=== PATIENT | female | born 1950 | race Caucasian/White ===

== ENCOUNTER 2017-07-03 13:04 | Observation (INO) | payer BC, MEDICARE ==
[~2017-07-03] VITALS: Ht 160 cm; Wt 76.4 kg
[2017-07-03] VITALS (10 sets, daily range): BP systolic 116–161; BP diastolic 60–86; PULSE 53–82; RESP 14–22; TEMP 97.8–97.9; O2SAT 94–98
[2017-07-03] MEDS ORDERED: ASPI-516 CHEW (13:54)
[2017-07-03] MEDS ORDERED: METO1TAB42 PO (13:54)
[2017-07-03] MEDS ORDERED: ASCO100029 PO (13:54)
[2017-07-03] MEDS ORDERED: CLAR10CA3 PO (13:54)
[2017-07-03] MEDS ORDERED: CHOL5000 PO (13:54)
--- NOTE | 2017-07-03 14:59 | PD ---
HPI Chief Complaint: Neuro Symptoms/ Deficits Time Seen by Provider: 14:36 Travel History International Travel<30 days: No Contact w/Intl Traveler<30days: No Traveled to known affect area: No History of Present Illness HPI Patient is a 67-year-old female presents emergency department for evaluation of transient right upper extremity weakness associated with some aphasia. Patient states she was in the shower about 11:30 today and had sudden weakness of her right upper extremity was unable to lift her shampoo bottle, states the symptoms resolved after about an hour. Denies any chest pain short of breath abdominal pain lower extremity weakness left upper trauma weakness or some other symptoms in the past. States she had a checkup a year ago and was deemed healthy, no history of high blood pressure high cholesterol. She states that her father had several strokes in several heart attacks. States symptoms were moderate to severe, right upper traumatic, no radiation, associated signs symptoms and context as above, resolved. PFSH Past Medical History High Cholesterol: Yes Diminished Hearing: No Hypertension: Yes : 1 Para: 1 Past Surgical History Tonsillectomy: Yes Other Surgery: Yes (BREAST BIOPSIES, RIGHT X 1, LEFT X 2 (NEGATIVE RESULTS)) Social History Alcohol Use: Yes (occassional) Tobacco Use: No Substance Use: No Allergies-Medications (Allergen,Severity, Reaction): Coded Allergies: erythromycin base (Verified Allergy, Severe, 07/03/17) abdominal pain Reported Meds & Prescriptions Reported Meds & Active Scripts Active Reported Claritin (Loratadine) 10 Mg Cap 10 Mg PO DAILY Vitamin D3 (Cholecalciferol) 5,000 Unit Cap 5,000 Units PO DAILY Vitamin C (Ascorbic Acid) 1,000 Mg Tablet.er 1,000 Mg PO DAILY Aspirin 81 Mg Chew 81 Mg CHEW DAILY Metoprolol Succinate ER 24 HR (Metoprolol Succinate) 25 Mg Tab 25 Mg PO DAILY Review of Systems Except as stated in HPI: all other systems reviewed are Neg Physical Exam Narrative GENERAL: Well-developed well-nourished no obvious distress SKIN: Focused skin assessment warm/dry. HEAD: Atraumatic. Normocephalic. EYES: Pupils equal and round. No scleral icterus. No injection or drainage. ENT: No nasal bleeding or discharge. Mucous membranes pink and moist. NECK: Trachea midline. No JVD. CARDIOVASCULAR: Regular rate and rhythm. No murmur appreciated. RESPIRATORY: No accessory muscle use. Clear to auscultation. Breath sounds equal bilaterally. GASTROINTESTINAL: Abdomen soft, non-tender, nondistended. Hepatic and splenic margins not palpable. MUSCULOSKELETAL: No obvious deformities. No clubbing. No cyanosis. No edema. NEUROLOGICAL: Awake and alert. Cranial nerves II through XII are grossly intact and nonfocal, 5 out of 5 strength in all 4 extremity's, cerebellar testing with [id number] and heel gonzalez testing negative. PSYCHIATRIC: Appropriate mood and affect; insight and judgment normal. Data Data Last Documented VS Vital Signs Date Time Temp Pulse Resp B/P (MAP) Pulse Ox O2 Delivery O2 Flow Rate FiO2 07/03/17 17:00 66 16 136/65 (88) 98 Room Air 07/03/17 13:07 97.8 Orders Orders Electrocardiogram (07/03/17 14:58) Complete Blood Count With Diff (07/03/17 14:58) Comprehensive Metabolic Panel (07/03/17 14:58) Creatine Kinase (Cpk) (07/03/17 14:58) Prothrombin Time / Inr (Pt) (07/03/17 14:58) Act Partial Throm Time (Ptt) (07/03/17 14:58) Troponin I (07/03/17 14:58) Thyroid Stimulating Hormone (07/03/17 14:58) Urinalysis - C+S If Indicated (07/03/17 14:58) Chest, Single Ap (07/03/17 14:58) Ct Brain W/O Iv Contrast(Rout) (07/03/17 14:58) Blood Glucose (07/03/17 14:58) Ecg Monitoring (07/03/17 14:58) Iv Access Insert/Monitor (07/03/17 14:58) Oximetry (07/03/17 14:58) Sodium Chloride 0.9% Flush (Ns Flush) (07/03/17 15:00) Aspirin Chew (Aspirin Chew) (07/03/17 15:00) Cholecalciferol (Vitamin D3) (07/04/17 09:00) Loratadine (Claritin) (07/04/17 09:00) Metoprolol Succinate Er (Toprol Xl) (07/04/17 09:00) Ascorbic Acid (Vitamin C) (07/04/17 09:00) Admit Order (Ed Use Only) (07/03/17 ) Comprehensive Metabolic Panel (07/04/17 06:00) Free Thyroxine (T4) (07/04/17 06:00) Hemoglobin (Hgb) A1c (07/04/17 06:00) Magnesium (Mg) (07/04/17 06:00) Phosphorus (Po4) (07/04/17 06:00) Thyroid Stimulating Hormone (07/04/17 06:00) Complete Blood Count With Diff (07/04/17 06:00) Clonidine (Catapres) (07/03/17 18:00) Labs Laboratory Tests Test 07/03/17 14:00 White Blood Count 5.3 TH/MM3 Red Blood Count 5.04 MIL/MM3 Hemoglobin 14.8 GM/DL Hematocrit 43.2 % Mean Corpuscular Volume 85.8 FL Mean Corpuscular Hemoglobin 29.4 PG Mean Corpuscular Hemoglobin Concent 34.2 % Red Cell Distribution Width 14.4 % Platelet Count 269 TH/MM3 Mean Platelet Volume 9.0 FL Neutrophils (%) (Auto) 49.3 % Lymphocytes (%) (Auto) 32.6 % Monocytes (%) (Auto) 13.1 % Eosinophils (%) (Auto) 4.1 % Basophils (%) (Auto) 0.9 % Neutrophils # (Auto) 2.6 TH/MM3 Lymphocytes # (Auto) 1.7 TH/MM3 Monocytes # (Auto) 0.7 TH/MM3 Eosinophils # (Auto) 0.2 TH/MM3 Basophils # (Auto) 0.0 TH/MM3 CBC Comment DIFF FINAL Differential Comment Prothrombin Time 10.1 SEC Prothromb Time International Ratio 1.0 RATIO Activated Partial Thromboplast Time 24.0 SEC Urine Color YELLOW Urine Turbidity CLEAR Urine pH 5.5 Urine Specific [place] 1.024 Urine Protein TRACE mg/dL Urine Glucose (UA) NEG mg/dL Urine Ketones NEG mg/dL Urine Occult Blood NEG Urine Nitrite NEG Urine Bilirubin NEG Urine Urobilinogen LESS THAN 2.0 MG/DL Urine Leukocyte Esterase NEG Urine RBC LESS THAN 1 /hpf Urine WBC LESS THAN 1 /hpf Urine Squamous Epithelial Cells 1 /hpf Urine Mucus FEW /lpf Microscopic Urinalysis Comment CATH-CULT NOT IND Blood Urea Nitrogen 13 MG/DL Creatinine 0.83 MG/DL Random Glucose 104 MG/DL Total Protein 7.0 GM/DL Albumin 3.7 GM/DL Calcium Level 8.9 MG/DL Alkaline Phosphatase 104 U/L Aspartate Amino Transf (AST/SGOT) 19 U/L Alanine Aminotransferase (ALT/SGPT) 31 U/L Total Bilirubin 0.3 MG/DL Sodium Level 138 MEQ/L Potassium Level 4.2 MEQ/L Chloride Level 103 MEQ/L Carbon Dioxide Level 27.7 MEQ/L Anion Gap 7 MEQ/L Estimat Glomerular Filtration Rate 68 ML/MIN Total Creatine Kinase 61 U/L Troponin I LESS THAN 0.02 NG/ML Thyroid Stimulating Hormone 3rd Gen 2.100 uIU/ML MDM Medical Decision Making Medical Screen Exam Complete: Yes Emergency Medical Condition: Yes Differential Diagnosis TIA, CVA, carotid stenosis, atrial fibrillation. Narrative Course Patient 67-year-old female presents emergency department for evaluation of TIA symptoms. Patient had a very dense right upper extremity weakness without any facial asymmetry started approximately 11:30 AM today. Upon arrival to the emergency department is completely resolved. Denies any other symptoms. She is a coming by her who states that it appears as though she did have some dysarthria as well. CT head negative, basic laboratory workup negative. Sinus rhythm on the monitor. Has a strong family history of cerebral infarcts in her father. Discussed with Dr. Waggoner for TIA observation Diagnosis Primary Impression: TIA (transient ischemic attack) Admitting Information Admitting Physician Requests: Observation Condition: Stable Noah Sanders MD Jul 03, 2017 14:59
[2017-07-03] MEDS ORDERED: SODIUM CHLORIDE 0.9% FLUSH 10 ML FLUSH IV FLUSH PRN ×3 (15:00→18:00)
[2017-07-03] MEDS ORDERED: ASPIRIN 81 MG CHEW TAB CHEW ONE (15:00)
--- NOTE | 2017-07-03 15:38 | RADRPT ---
EXAM DATE/TIME: 07/03/2017 15:31 [facility] COMPARISON: No previous studies available for comparison. INDICATIONS : Right arm numbness. RADIATION DOSE: 56.35 CTDIvol (mGy) MEDICAL HISTORY : Hypertension. SURGICAL HISTORY : Tonsillectomy. ENCOUNTER: Initial ACUITY: 1 day PAIN SCALE: 0/10 LOCATION: cranial TECHNIQUE: Multiple contiguous axial images were obtained of the head. Using automated exposure control and adj ustment of the mA and/or kV according to patient size, radiation dose was kept as low as reasonably a chievable to obtain optimal diagnostic quality images. DICOM format image data is available electro nically for review and comparison. FINDINGS: CEREBRUM: The ventricles are normal for age. No evidence of midline shift, mass lesion, hemorrhage or acute in farction. No extra-axial fluid collections are seen. POSTERIOR FOSSA: The cerebellum and brainstem are intact. The 4th ventricle is midline. The cerebellopontine angle i s unremarkable. EXTRACRANIAL: The visualized portion of the orbits is intact. SKULL: The calvaria is intact. No evidence of skull fracture. CONCLUSION: Negative noncontrast CT Ariel Conklin MD on July 03, 2017 at 15:35 Board Certified Radiologist. This report was verified electronically.
[2017-07-03 15:46] LABS: AUTOMATED NEUTROPHIL # 2.6 TH/MM3 (1.8-7.7); BASOPHIL % 0.9 % (0.0-2.0); EOSINOPHIL # 0.2 TH/MM3 (0-0.4); EOSINOPHIL % 4.1 % (0.0-4.0); HEMATOCRIT 43.2 % (35.0-46.0); HEMOGLOBIN 14.8 GM/DL (11.6-15.3); LYMPH % 32.6 % (9.0-44.0); LYMPHOCYTE # 1.7 TH/MM3 (1.0-4.8); MEAN CELL VOLUME 85.8 FL (80.0-100.0); MEAN CORPUSCULAR HEMOGLOBIN 29.4 PG (27.0-34.0); MEAN CORPUSCULAR HGB CONC 34.2 % (32.0-36.0); MONO % 13.1 % (0.0-8.0); MONOCYTE # 0.7 TH/MM3 (0-0.9); NEUT % 49.3 % (16.0-70.0); PLATELET COUNT 269 TH/MM3 (150-450); RED BLOOD COUNT 5.04 MIL/MM3 (4.00-5.30); RED CELL DISTRIBUTION WIDTH 14.4 % (11.6-17.2); WHITE BLOOD COUNT 5.3 TH/MM3 (4.0-11.0)
--- NOTE | 2017-07-03 15:47 | RADRPT ---
EXAM DATE/TIME: 07/03/2017 15:14 [facility] COMPARISON: No previous studies available for comparison. INDICATIONS : Syncope. Right arm numbness. MEDICAL HISTORY : None. SURGICAL HISTORY : None. ENCOUNTER: Initial ACUITY: 1 day PAIN SCORE: 0/10 LOCATION: Bilateral chest FINDINGS: A single view of the chest demonstrates the lungs to be symmetrically aerated without evidence of mas s, infiltrate or effusion. The cardiomediastinal contours are unremarkable. Osseous structures are intact. CONCLUSION: 1. No acute cardiopulmonary disease. Sebastian Richard MD on July 03, 2017 at 15:45 Board Certified Radiologist. This report was verified electronically.
[2017-07-03 16:05] LABS: PROTHROMBIN TIME - PATIENT 10.1 SEC (9.8-11.6)
[2017-07-03 16:13] LABS: BILIRUBIN, URINE NEG (NEG); BLOOD, URINE NEG (NEG); GLUCOSE,URINE NEG (NEG); KETONE, URINE NEG (NEG); MUCUS URINE FEW /lpf (OCC); NITRITE,URINE NEG (NEG); PH, URINE 5.5 (5.0-8.5); SQUAMOUS EPITHELIAL CELL URINE 1 /hpf (0-5); URINE COLOR YELLOW (YELLW/STRAW); URINE LEUKOCYTE ESTERASE NEG (NEG)
[2017-07-03 16:28] LABS: ALBUMIN 3.7 GM/DL (3.4-5.0); ALKALINE PHOSPHATASE 104 U/L (45-117); ALT (GPT) 31 U/L (10-53); AST (GOT) 19 U/L (15-37); BICARBONATE 27.7 MEQ/L (21.0-32.0); BLOOD UREA NITROGEN 13 MG/DL (7-18); CALCIUM 8.9 MG/DL (8.5-10.1); CHLORIDE 103 MEQ/L (98-107); CREATININE 0.83 MG/DL (0.50-1.00); GLOMERULAR FILTRATION RATE 68 ML/MIN (>89); GLUCOSE,RANDOM 104 MG/DL (74-106); SODIUM (NA) 138 MEQ/L (136-145); TOTAL BILIRUBIN ADULT 0.3 MG/DL (0.2-1.0); TROPONIN I LESS THAN 0.02 NG/ML (0.02-0.05)
[2017-07-03] MEDS ORDERED: MORPHINE SULFATE 2 MG/ML INJ IV PUSH PRN (18:00)
[2017-07-03] MEDS ORDERED: cloNIDine HCL 0.1 MG TAB PO PRN (18:00)
[2017-07-03] MEDS ORDERED: MAGNESIUM HYDROXIDE SUSP 30 ML CUP PO PRN (18:00)
[2017-07-03] MEDS ORDERED: LACTULOSE SYRUP 20 GM/30 ML CUP PO PRN (18:00)
[2017-07-03] MEDS ORDERED: oxyCODONE/ACETAMINOPHEN 10 MG/325 MG TAB PO PRN (18:00)
[2017-07-03] MEDS ORDERED: ACETAMINOPHEN 325 MG TAB PO PRN ×2 (18:00)
[2017-07-03] MEDS ORDERED: SENNOSIDES 8.6 MG TAB PO PRN (18:00)
[2017-07-03] MEDS ORDERED: ACETAMINOPHEN/HYDROcodone 325 MG/5 MG TAB PO PRN (18:00)
[2017-07-03] MEDS ORDERED: ENOXAPARIN SODIUM 40 MG/0.4 ML SYRINGE SQ SCH (18:00)
[2017-07-03] MEDS ORDERED: BISACODYL 10 MG SUPP RECTAL PRN (18:00)
[2017-07-03] MEDS ORDERED: DEXTROSE 50% IN WATER 50 ML VIAL(D50) IV PUSH PRN (18:00)
[2017-07-03] MEDS ORDERED: GLUCAGON 1 MG/ML VIAL OTHER PRN (18:00)
[2017-07-03] MEDS ORDERED: METOCLOPRAMIDE HCL 10 MG/2 ML VIAL IV PUSH PRN (18:00)
[2017-07-03] MEDS ORDERED: ONDANSETRON HCL 4 MG/2 ML VIAL IVP PRN (18:00)
[2017-07-03] MEDS ORDERED: NALOXONE HCL 0.4 MG/ML AMP IV PUSH PRN (18:00)
[2017-07-03] MEDS ORDERED: MORPHINE SULFATE 4 MG/ML INJ IV PUSH PRN (18:15)
[2017-07-03 19:39] LABS: TROPONIN I LESS THAN 0.02 NG/ML (0.02-0.05)
--- NOTE | 2017-07-03 20:55 | HHI.HP ---
HPI Service [facility] Primary Care Physician No Primary Care Physician Admission Diagnosis TIA Diagnoses: Chief Complaint: right upper extremity weakness Travel History International Travel<30 Days: No Contact w/Intl Traveler <30 Da: No Traveled to Known Affected Are: No History of Present Illness 67 y/o female with a history of HTN, and HLD presented to the ED with complaints of weakness to the right upper extremity, She states she was taking a shower this morning and her right hand when limp and numb. She states she also had a hard time talking, but wasn't sure if it was from the shock of thinking she was having a stroke. She states over the course of a few mins she regained her strength and she was able to finish taking a shower. She states it happened again at around 3:30 but the symptoms were less severe. She denies any associated chest pain, sob, headaches, dizziness, or nausea. 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 She denies any trauma or heavy lifting to the right arm. Her is at the bedside and is a Doctor and he is wanting to her to have a cervical spine x ray. Review of Systems Except as stated in HPI: all other systems reviewed are Neg Past Family Social History Past Medical History HLD HTN Past Surgical History Tonsillectomy Breast biopsies Right wrist surgery Reported Medications Reported Meds & Active Scripts Active Reported Claritin (Loratadine) 10 Mg Cap 10 Mg PO DAILY Vitamin D3 (Cholecalciferol) 5,000 Unit Cap 5,000 Units PO DAILY Vitamin C (Ascorbic Acid) 1,000 Mg Tablet.er 1,000 Mg PO DAILY Aspirin 81 Mg Chew 81 Mg CHEW DAILY Metoprolol Succinate ER 24 HR (Metoprolol Succinate) 25 Mg Tab 25 Mg PO DAILY Allergies: Coded Allergies: erythromycin base (Verified Allergy, Severe, 07/03/17) abdominal pain Active Ordered Medications Current Medications Medications (Trade) Dose Ordered Sig/Chau Route Start Time Stop Time Status Last Admin (NS Flush) 2 ml UNSCH PRN IV FLUSH 07/03/17 15:00 (Vitamin D3) 5,000 units DAILY PO 07/04/17 09:00 (Claritin) 10 mg DAILY PO 07/04/17 09:00 (Toprol Xl) 25 mg DAILY PO 07/04/17 09:00 (Vitamin C) 1,000 mg DAILY PO 07/04/17 09:00 (Catapres) 0.1 mg Q4H PRN PO 07/03/17 18:00 (NS Flush) 2 ml UNSCH PRN IV FLUSH 07/03/17 18:00 (NS Flush) 2 ml BID IV FLUSH 07/03/17 21:00 (Tylenol) 650 mg Q4H PRN PO 07/03/17 18:00 (Zofran Inj) 4 mg Q6H PRN IVP 07/03/17 18:00 (Reglan Inj) 5 mg Q6H PRN IV PUSH 07/03/17 18:00 (Lovenox Inj) 40 mg Q24H SQ 07/03/17 18:00 07/03/17 19:08 (Tylenol) 650 mg Q6H PRN PO 07/03/17 18:00 ([place] 5-325 Mg) 1 tab Q4H PRN PO 07/03/17 18:00 (Percocet 10-325 Mg) 1 tab Q6H PRN PO 07/03/17 18:00 (Morphine Inj) 2 mg Q3H PRN IV PUSH 07/03/17 18:00 (Morphine Inj) 4 mg Q3H PRN IV PUSH 07/03/17 18:15 (Narcan Inj) 0.4 mg UNSCH PRN IV PUSH 07/03/17 18:00 (Melba-Colace) 1 tab BID PO 07/03/17 21:00 (Milk Of Magnesia Liq) 30 ml Q12H PRN PO 07/03/17 18:00 (Senokot) 17.2 mg Q12H PRN PO 07/03/17 18:00 (Dulcolax Supp) 10 mg DAILY PRN RECTAL 07/03/17 18:00 (Lactulose Liq) 30 ml DAILY PRN PO 07/03/17 18:00 (Aspirin) 325 mg DAILY PO 07/04/17 09:00 (Lipitor) 10 mg HS PO 07/03/17 21:00 (NovoLOG SUPPLEMENTAL SCALE) 1 ACHS SQ 07/03/17 21:00 (D50w (Vial) Inj) 50 ml UNSCH PRN IV PUSH 07/03/17 18:00 (Glucagon Inj) 1 mg UNSCH PRN OTHER 07/03/17 18:00 Family History Father: CVA Social History Tobacco use: Denies Alcohol use: rarely Illicit drug use: Denies Physical Exam Vital Signs Vital Signs Date Time Temp Pulse Resp B/P (MAP) Pulse Ox O2 Delivery O2 Flow Rate FiO2 07/03/17 20:02 97.9 63 18 128/64 (85) 97 07/03/17 19:35 07/03/17 19:18 Room Air 07/03/17 19:02 53 16 128/63 (84) 98 Room Air 07/03/17 17:00 66 16 136/65 (88) 98 Room Air 07/03/17 16:00 64 14 136/66 (89) 96 Room Air 07/03/17 15:30 142/69 (93) 07/03/17 15:11 94 Room Air 07/03/17 15:00 68 14 133/69 (90) 96 Room Air 07/03/17 14:03 70 22 161/72 (101) 97 Room Air 07/03/17 13:07 97.8 82 18 153/86 (108) 98 Room Air Physical Exam GENERAL: This is a well-nourished, well-developed patient, in no apparent distress. SKIN: No rashes, ecchymoses or lesions. Cool and dry. HEAD: Atraumatic. Normocephalic. EYES: Pupils equal round and reactive. ENT: Nose without bleeding, purulent drainage or septal hematoma. Airway patent. NECK: Trachea midline. No JVD or lymphadenopathy. CARDIOVASCULAR: Regular rate and rhythm without murmurs, gallops, or rubs. RESPIRATORY: Clear to auscultation. Breath sounds equal bilaterally. No wheezes , rales, or rhonchi. GASTROINTESTINAL: Abdomen soft, non-tender, nondistended. MUSCULOSKELETAL: Extremities without clubbing, cyanosis, or edema. No calf tenderness. NEUROLOGICAL: Awake and alert. Cranial nerves II through XII intact. Motor and sensory grossly within normal limits. Five out of 5 muscle strength in all muscle groups. Normal speech. Laboratory Laboratory Tests Test 07/03/17 14:00 07/03/17 18:26 White Blood Count 5.3 Red Blood Count 5.04 Hemoglobin 14.8 Hematocrit 43.2 Mean Corpuscular Volume 85.8 Mean Corpuscular Hemoglobin 29.4 Mean Corpuscular Hemoglobin Concent 34.2 Red Cell Distribution Width 14.4 Platelet Count 269 Mean Platelet Volume 9.0 Neutrophils (%) (Auto) 49.3 Lymphocytes (%) (Auto) 32.6 Monocytes (%) (Auto) 13.1 Eosinophils (%) (Auto) 4.1 Basophils (%) (Auto) 0.9 Neutrophils # (Auto) 2.6 Lymphocytes # (Auto) 1.7 Monocytes # (Auto) 0.7 Eosinophils # (Auto) 0.2 Basophils # (Auto) 0.0 CBC Comment DIFF FINAL Differential Comment Prothrombin Time 10.1 Prothromb Time International Ratio 1.0 Activated Partial Thromboplast Time 24.0 Urine Color YELLOW Urine Turbidity CLEAR Urine pH 5.5 Urine Specific [place] 1.024 Urine Protein TRACE Urine Glucose (UA) NEG Urine Ketones NEG Urine Occult Blood NEG Urine Nitrite NEG Urine Bilirubin NEG Urine Urobilinogen LESS THAN 2.0 Urine Leukocyte Esterase NEG Urine RBC LESS THAN 1 Urine WBC LESS THAN 1 Urine Squamous Epithelial Cells 1 Urine Mucus FEW Microscopic Urinalysis Comment CATH-CULT NOT IND Blood Urea Nitrogen 13 Creatinine 0.83 Random Glucose 104 Total Protein 7.0 Albumin 3.7 Calcium Level 8.9 Alkaline Phosphatase 104 Aspartate Amino Transf (AST/SGOT) 19 Alanine Aminotransferase (ALT/SGPT) 31 Total Bilirubin 0.3 Sodium Level 138 Potassium Level 4.2 Chloride Level 103 Carbon Dioxide Level 27.7 Anion Gap 7 Estimat Glomerular Filtration Rate 68 Total Creatine Kinase 61 54 Troponin I LESS THAN 0.02 LESS THAN 0.02 Thyroid Stimulating Hormone 3rd Gen 2.100 Result Diagram: 07/03/17 1400 07/03/17 1400 Imaging Last Impressions Head CT 07/03/17 1458 Signed Impressions: Service Date/Time: Monday, July 03, 2017 15:31 - CONCLUSION: Negative noncontrast CT Ariel Conklin MD Chest X-Ray 07/03/17 1458 Signed Impressions: Service Date/Time: Monday, July 03, 2017 15:14 - CONCLUSION: 1. No acute cardiopulmonary disease. MD Annette Hurtado VTE Risk Assessment Caprini VTE Risk Assessment: Mod/High Risk (score >= 2) Caprini Risk Assessment Model Point Value = 1 Point Value = 2 Point Value = 3 Point Value = 5 Age 41-60 Minor surgery BMI > 25 kg/m2 Swollen legs Varicose veins or History of unexplained or recurrent spontaneous Oral contraceptives or hormone replacement Sepsis (< 1 month) Serious lung disease, including pneumonia (< 1 month) Abnormal pulmonary function Acute myocardial infarction Congestive heart failure (< 1 month) History of inflammatory bowel disease Medical patient at bed rest Age 61-74 Arthroscopic surgery Major open surgery (> 45 min) Laparoscopic surgery (> 45 min) Malignancy Confined to bed (> 72 hours) Immobilizing plaster cast Central venous access Age >= 75 History of VTE Family history of VTE Factor V Leiden Prothrombin [id number] Lupus anticoagulant Anticardiolipin antibodies Elevated serum homocysteine Heparin-induced thrombocytopenia Other congenital or acquired thrombophilia Stroke (< 1 month) Elective arthroplasty Hip, pelvis, or leg fracture Acute spinal cord injury (< 1 month) Prophylaxis Regimen Total Risk Factor Score Risk Level Prophylaxis Regimen 0-1 Low Early ambulation 2 Moderate Order ONE of the following: *Sequential Compression Device (SCD) *Heparin 5000 units SQ BID 3-4 Higher Order ONE of the following medications: *Heparin 5000 units SQ TID *Enoxaparin/Lovenox 40 mg SQ daily (WT < 150 kg, CrCl > 30 mL/min) *Enoxaparin/Lovenox 30 mg SQ daily (WT < 150 kg, CrCl > 10-29 mL/min) *Enoxaparin/Lovenox 30 mg SQ BID (WT < 150 kg, CrCl > 30 mL/min) AND/OR *Sequential Compression Device (SCD) 5 or more Highest Order ONE of the following medications: *Heparin 5000 units SQ TID (Preferred with Epidurals) *Enoxaparin/Lovenox 40 mg SQ daily (WT < 150 kg, CrCl > 30 mL/min) *Enoxaparin/Lovenox 30 mg SQ daily (WT < 150 kg, CrCl > 10-29 mL/min) *Enoxaparin/Lovenox 30 mg SQ BID (WT < 150 kg, CrCl > 30 mL/min) AND *Sequential Compression Device (SCD) Assessment and Plan Problem List: (1) TIA (transient ischemic attack) ICD Code: G45.9 - Transient cerebral ischemic attack, unspecified Status: Acute (2) HTN (hypertension) ICD Code: I10 - Essential (primary) hypertension Status: Chronic Assessment and Plan 67 year old female with a history of HTN and HLD presented to the ED with complaints of TIA, acute Head CT reviewed and shows no cva Brain MRI reviewed and shows no hemorrhage -Carotid US and 2D echo ordered -Serial troponin and EKGs -PT/OT/ST -Lipid panel and A1C ordered -Neuro checks -Cervical spine x ray to rule out other abnormalities HTN, chronic -monitor vitals -Resume home metoprolol DVT prophylaxis: Lovenox and Scds Discussed Condition With Patient Problem Qualifiers (1) HTN (hypertension): Qualified Codes: I10 - Essential (primary) hypertension Christel Connors Jul 03, 2017 20:55
[2017-07-03] MEDS ORDERED: SODIUM CHLORIDE 0.9% FLUSH 10 ML FLUSH IV FLUSH SCH (21:00)
[2017-07-03] MEDS: DOCUSATE SODIUM 50 MG/SENNA 8.6 MG TAB PO SCH (21:00)
[2017-07-03] MEDS: INSULIN ASPART SUPPLEMENTAL SCALE SQ SCH (21:00)
[2017-07-03] MEDS: SODIUM CHLORIDE 0.9% FLUSH 10 ML FLUSH IV FLUSH SCH (21:00)
[2017-07-03] MEDS: ATORVASTATIN 10 MG TAB PO SCH (21:00)
--- NOTE | 2017-07-03 22:50 | RADRPT ---
EXAM DATE/TIME: 07/03/2017 18:31 [facility] COMPARISON: No previous studies available for comparison. INDICATIONS : TIA. MEDICAL HISTORY : Hypertension. SURGICAL HISTORY : Tonsillectomy. Abdomial plasty, Right wrist sx. ENCOUNTER: Initial ACUITY: 1 day PAIN SCORE: 1/10 LOCATION: Right cranial TECHNIQUE: Multiplanar, multisequence MRI of the brain was performed without contrast. FINDINGS: CEREBRUM: The ventricles are normal for age. No evidence of midline shift, mass lesion, hemorrhage or acute in farction. No extraaxial fluid collections are seen. There is an empty sella. WHITE MATTER: No significant signal abnormalities are seen in the white matter. POSTERIOR FOSSA: The cerebellum and brainstem are intact. The 4th ventricle is midline. The cerebellopontine angle is unremarkable. The cerebellar tonsils are normal in position. DIFFUSION IMAGING: No focal areas of restricted diffusion are seen. No evidence of acute infarction. EXTRACRANIAL: The visualized portions of the orbits and paranasal sinuses are unremarkable. CONCLUSION: No acute disease. Empty sella. Noah Steven MD on July 03, 2017 at 22:45 Board Certified Radiologist. This report was verified electronically.
--- NOTE | 2017-07-03 22:52 | RADRPT ---
EXAM DATE/TIME: 07/03/2017 18:31 [facility] COMPARISON: No previous studies available for comparison. INDICATIONS : TIA. MEDICAL HISTORY : Hypertension. SURGICAL HISTORY : Tonsillectomy. Right wrist sx, Abdomial plasty. ENCOUNTER: Initial ACUITY: 1 day PAIN SCORE: 1/10 LOCATION: Right cranial Please note a normal MRA of the brain does not entirely exclude the possibility of a small aneurysm, nor the possibility of distal intracranial vessel disease. TECHNIQUE: 3D time of flight MRA was performed. Source images, multiplanar STS MIP, and 3D volume MIP reconstru ctions were reviewed. FINDINGS: There is excellent visualization of the major intracranial arteries out to the second-order branch ve ssels. There is no evidence for aneurysm, vessel truncation or stenosis, and no evidence for vascula r malformation. CONCLUSION: No acute disease. Noah Steven MD on July 03, 2017 at 22:48 Board Certified Radiologist. This report was verified electronically.
--- NOTE | 2017-07-03 23:15 | RADRPT ---
EXAM DATE/TIME: 07/03/2017 22:39 [facility] COMPARISON: No previous studies available for comparison. INDICATIONS : Possible cord compression. Right arm numbness. MEDICAL HISTORY : Hypertension. SURGICAL HISTORY : Tonsillectomy. ENCOUNTER: Initial ACUITY: 1 day PAIN SCORE: 0/10 LOCATION: Neck. FINDINGS: Cervical spondylosis is noted at C4-5 and C5-6 and to a lesser extent at C3-4 and C6-7. There is no a cute fracture or prevertebral soft tissue swelling. The bony relationship in alignment between C1 and C2 is well maintained. CONCLUSION: 1. Cervical spondylosis at C4-5, C5-6 and to a lesser extent at C3-4 and C6-7. 2. No acute fracture or prevertebral soft tissue swelling. Noah Steven MD on July 03, 2017 at 23:10 Board Certified Radiologist. This report was verified electronically.
--- NOTE | 2017-07-03 23:19 | RADRPT ---
EXAM DATE/TIME: 07/03/2017 22:18 [facility] COMPARISON: No previous studies available for comparison. INDICATIONS : Transient ischemic attack. MEDICAL HISTORY : Hypercholesterolemia. Hypertension. SURGICAL HISTORY : Tonsillectomy. Right wrist surgery. Breast biopsy. ENCOUNTER: Initial ACUITY: 1 day PAIN SCORE: 0/10 LOCATION: Bilateral neck PEAK SYSTOLIC VELOCITIES (cm/sec): ICA/CCA RATIO: Right: 0.7 Left: 0.9 ICA: Right: 76.2 Left: 100.0 CCA: Right: 104.3 Left: 116.0 ECA: Right: 64.6 Left: 75.8 VERTEBRAL: Right: 54.8 antegrade Left: 74.2 antegrade Elevated flow velocities and ICA/CCA ratios have been found to correlate with increased degrees of vessel stenosis, calculated as percentage of diameter relative to a normal segment of distal ICA/CCA FINDINGS: RIGHT CAROTID: No significant stenosis is visualized. The waveforms are within normal limits. LEFT CAROTID: No significant stenosis is visualized. The waveforms are within normal limits. VERTEBRAL ARTERIES: Antegrade flow is seen in both vertebral arteries. MISCELLANEOUS: None. CONCLUSION: No acute disease. Noah Steven MD on July 03, 2017 at 23:16 Board Certified Radiologist. This report was verified electronically.
[2017-07-04 00:13] VITALS: O2SAT 96
[2017-07-04 02:14] LABS: AUTOMATED NEUTROPHIL # 3.7 TH/MM3 (1.8-7.7); BASOPHIL % 0.5 % (0.0-2.0); EOSINOPHIL # 0.3 TH/MM3 (0-0.4); EOSINOPHIL % 3.5 % (0.0-4.0); HEMATOCRIT 40.1 % (35.0-46.0); HEMOGLOBIN 13.5 GM/DL (11.6-15.3); LYMPH % 32.4 % (9.0-44.0); LYMPHOCYTE # 2.4 TH/MM3 (1.0-4.8); MEAN CELL VOLUME 85.2 FL (80.0-100.0); MEAN CORPUSCULAR HEMOGLOBIN 28.8 PG (27.0-34.0); MEAN CORPUSCULAR HGB CONC 33.8 % (32.0-36.0); MEAN PLATELET VOLUME 8.6 FL (7.0-11.0); MONO % 12.9 % (0.0-8.0); MONOCYTE # 0.9 TH/MM3 (0-0.9); NEUT % 50.7 % (16.0-70.0); PLATELET COUNT 271 TH/MM3 (150-450); RED BLOOD COUNT 4.71 MIL/MM3 (4.00-5.30); RED CELL DISTRIBUTION WIDTH 14.4 % (11.6-17.2); WHITE BLOOD COUNT 7.3 TH/MM3 (4.0-11.0)
[2017-07-04 02:29] LABS: ALBUMIN 3.3 GM/DL (3.4-5.0); AST (GOT) 13 U/L (15-37); BICARBONATE 30.1 MEQ/L (21.0-32.0); BLOOD UREA NITROGEN 14 MG/DL (7-18); CALCIUM 8.4 MG/DL (8.5-10.1); CHLORIDE 104 MEQ/L (98-107); CHOLESTEROL 244 MG/DL (120-200); CREATININE 0.84 MG/DL (0.50-1.00); GLOMERULAR FILTRATION RATE 67 ML/MIN (>89); GLUCOSE,RANDOM 152 MG/DL (74-106); MAGNESIUM 2.2 MG/DL (1.5-2.5); SODIUM (NA) 140 MEQ/L (136-145); TRIGLYCERIDES 141 MG/DL (42-150)
[2017-07-04 02:38] LABS: ALKALINE PHOSPHATASE 88 U/L (45-117); ALT (GPT) 24 U/L (10-53); CHOLESTEROL/ HDL RATIO 5.39 RATIO; FREE T4 0.91 NG/DL (0.76-1.46); HDL CHOLESTEROL 45.2 MG/DL (40.0-60.0); LDL CHOLESTEROL 171 MG/DL (0-99); PHOSPHORUS 2.9 MG/DL (2.5-4.9); TOTAL BILIRUBIN ADULT 0.3 MG/DL (0.2-1.0); TOTAL PROTEIN 6.1 GM/DL (6.4-8.2); TROPONIN I LESS THAN 0.02 NG/ML (0.02-0.05)
[2017-07-04 03:53] VITALS: BP 107/58; PULSE 70; RESP 18; TEMP 97.9; O2SAT 96
[2017-07-04 07:59] VITALS: BP 113/61; PULSE 73; RESP 16; TEMP 97.6; O2SAT 96
[2017-07-04] MEDS: INSULIN ASPART SUPPLEMENTAL SCALE SQ SCH ×2 (08:00→12:00)
--- NOTE | 2017-07-04 08:58 | PD.CONS ---
History of Present Illness Service Neurology Consult Requested By medical Reason for Consult tia Primary Care Physician No Primary Care Physician History of Present Illness 67 y/o female admitted for tia. visiting from [place] with spouse, who is a family practice doctor. was taking a shower and suddenly felt weakness in her rt arm. lasted minutes. face felt a little numb. it reoccurred briefly. no previous episodes. no hx of tia/stroke. glucose 104, ldl 171 ct brain nacip. mri brain no acute stroke. mra brain no acute lesion. carotid u/ s negative. ekg-nsr she feels back to her baseline at present. Review of Systems Except as stated in HPI: all other systems reviewed are Neg/rest per admit hp Past Family Social History Past Medical History HLD HTN Past Surgical History Tonsillectomy Right wrist surgery Reported Medications Reported Meds & Active Scripts Active Reported Claritin (Loratadine) 10 Mg Cap 10 Mg PO DAILY Vitamin D3 (Cholecalciferol) 5,000 Unit Cap 5,000 Units PO DAILY Vitamin C (Ascorbic Acid) 1,000 Mg Tablet.er 1,000 Mg PO DAILY Aspirin 81 Mg Chew 81 Mg CHEW DAILY Metoprolol Succinate ER 24 HR (Metoprolol Succinate) 25 Mg Tab 25 Mg PO DAILY Allergies: Coded Allergies: erythromycin base (Verified Allergy, Severe, 07/03/17) abdominal pain Family History Social History 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 Tobacco use: Denies Alcohol use: rarely Illicit drug use: Denies Review of Systems All other ROS: ROS reviewed as documented in chart Past Family Social History Allergies: Coded Allergies: erythromycin base (Verified Allergy, Severe, 07/03/17) abdominal pain Active Ordered Medications Current Medications Medications (Trade) Dose Ordered Sig/Chau Route Start Time Stop Time Status Last Admin (NS Flush) 2 ml UNSCH PRN IV FLUSH 07/03/17 15:00 (Vitamin D3) 5,000 units DAILY PO 07/04/17 09:00 (Claritin) 10 mg DAILY PO 07/04/17 09:00 (Toprol Xl) 25 mg DAILY PO 07/04/17 09:00 (Vitamin C) 1,000 mg DAILY PO 07/04/17 09:00 (Catapres) 0.1 mg Q4H PRN PO 07/03/17 18:00 (NS Flush) 2 ml UNSCH PRN IV FLUSH 07/03/17 18:00 (NS Flush) 2 ml BID IV FLUSH 07/03/17 21:00 07/03/17 21:00 (Tylenol) 650 mg Q4H PRN PO 07/03/17 18:00 (Zofran Inj) 4 mg Q6H PRN IVP 07/03/17 18:00 (Reglan Inj) 5 mg Q6H PRN IV PUSH 07/03/17 18:00 (Lovenox Inj) 40 mg Q24H SQ 07/03/17 18:00 07/03/17 19:08 (Tylenol) 650 mg Q6H PRN PO 07/03/17 18:00 ([place] 5-325 Mg) 1 tab Q4H PRN PO 07/03/17 18:00 (Percocet 10-325 Mg) 1 tab Q6H PRN PO 07/03/17 18:00 (Morphine Inj) 2 mg Q3H PRN IV PUSH 07/03/17 18:00 (Morphine Inj) 4 mg Q3H PRN IV PUSH 07/03/17 18:15 (Narcan Inj) 0.4 mg UNSCH PRN IV PUSH 07/03/17 18:00 (Melba-Colace) 1 tab BID PO 07/03/17 21:00 (Milk Of Magnesia Liq) 30 ml Q12H PRN PO 07/03/17 18:00 (Senokot) 17.2 mg Q12H PRN PO 07/03/17 18:00 (Dulcolax Supp) 10 mg DAILY PRN RECTAL 07/03/17 18:00 (Lactulose Liq) 30 ml DAILY PRN PO 07/03/17 18:00 (Aspirin) 325 mg DAILY PO 07/04/17 09:00 (Lipitor) 10 mg HS PO 07/03/17 21:00 (NovoLOG SUPPLEMENTAL SCALE) 1 ACHS SQ 07/03/17 21:00 (D50w (Vial) Inj) 50 ml UNSCH PRN IV PUSH 07/03/17 18:00 (Glucagon Inj) 1 mg UNSCH PRN OTHER 07/03/17 18:00 Exam I&O / VS Vital Signs Date Time Temp Pulse Resp B/P (MAP) Pulse Ox O2 Delivery O2 Flow Rate FiO2 07/04/17 07:59 97.6 73 16 113/61 (78) 96 07/04/17 03:53 97.9 70 18 107/58 (74) 96 07/04/17 00:13 96 21 07/03/17 23:49 97.9 76 18 116/60 (78) 96 07/03/17 20:02 97.9 63 18 128/64 (85) 97 07/03/17 19:35 07/03/17 19:18 Room Air 07/03/17 19:02 53 16 128/63 (84) 98 Room Air 07/03/17 17:00 66 16 136/65 (88) 98 Room Air 07/03/17 16:00 64 14 136/66 (89) 96 Room Air 07/03/17 15:30 142/69 (93) 07/03/17 15:11 94 Room Air 07/03/17 15:00 68 14 133/69 (90) 96 Room Air 07/03/17 14:03 70 22 161/72 (101) 97 Room Air 07/03/17 13:07 97.8 82 18 153/86 (108) 98 Room Air General: Alert and Oriented, No acute distress Eye: EOMI Respiratory: Non-labored respirations Cardiology: Normal rate Musculoskeletal: ROM Neurologic: Alert, Oriented, Normal sensory, Normal motor, No focal defects, CN II-XII intact, Gag reflex normal, Normal DTR's Psychiatric: Cooperative, Appropriate mood & affect, Normal judgement, Non- suicidal Exam Comments alert and ox3, no aphasia, fluent, articulate, eomi, vff, ou 3-2mm, face sym, no drift, no dystaxia, able to raise all 4 ext to gravity for >5 sec, no clonus , planterflexor Review/Management Diagnosis/Plan: (1) TIA (transient ischemic attack) ICD Codes: G45.9 - Transient cerebral ischemic attack, unspecified Status: Acute Plan: possible lacunar left mca/corticospinal tia etiologies: small vessel vs cardioembolic recs plavix echo statin; goal ldl 70 or less bp control/exercise/lipid control d/c planning if echo negative and tele negative for afib can get event monitor, hypercoag testing back home (2) HLD (hyperlipidemia) ICD Codes: E78.5 - Hyperlipidemia, unspecified Status: Chronic Plan: add statin (3) HTN (hypertension) ICD Codes: I10 - Essential (primary) hypertension Status: Chronic Plan: bp control goal <120/80 Problem Qualifiers (1) HTN (hypertension): Qualified Codes: I10 - Essential (primary) hypertension Uriel Forbes MD Jul 04, 2017 08:58
[2017-07-04] MEDS ORDERED: CLOPIDOGREL 75 MG TAB PO SCH (09:00)
[2017-07-04] MEDS ORDERED: CHOLECALCIFEROL (VIT D3) 5000 UNIT CAP PO SCH (09:00)
[2017-07-04] MEDS ORDERED: ASPIRIN 325 MG TAB PO SCH (09:00)
[2017-07-04] MEDS: DOCUSATE SODIUM 50 MG/SENNA 8.6 MG TAB PO SCH (09:00)
[2017-07-04] MEDS ORDERED: ASCORBIC ACID 500 MG TAB PO SCH (09:00)
[2017-07-04] MEDS ORDERED: LORATADINE 10 MG TAB PO SCH (09:00)
[2017-07-04] MEDS ORDERED: METOPROLOL SUCCINATE 25 MG EXTENDED RELEASE TAB PO SCH (09:00)
[2017-07-04 09:01] VITALS: O2SAT 96
[2017-07-04] MEDS: SODIUM CHLORIDE 0.9% FLUSH 10 ML FLUSH IV FLUSH SCH (09:06)
[2017-07-04 12:05] VITALS: BP 102/60; PULSE 67; RESP 16; TEMP 97.3; O2SAT 96
--- NOTE | 2017-07-04 14:52 | HHI.PR ---
Subjective Remarks Follow up for TIA. Patient is currently doing well. No acute concerns. No neurological symptoms. Objective Vitals Vital Signs Date Time Temp Pulse Resp B/P (MAP) Pulse Ox O2 Delivery O2 Flow Rate FiO2 07/04/17 12:56 20 07/04/17 12:05 97.3 67 16 102/60 (74) 96 07/04/17 09:01 96 21 07/04/17 07:59 97.6 73 16 113/61 (78) 96 07/04/17 03:53 97.9 70 18 107/58 (74) 96 07/04/17 00:13 96 21 07/03/17 23:49 97.9 76 18 116/60 (78) 96 07/03/17 20:02 97.9 63 18 128/64 (85) 97 07/03/17 19:35 07/03/17 19:18 Room Air 07/03/17 19:02 53 16 128/63 (84) 98 Room Air 07/03/17 17:00 66 16 136/65 (88) 98 Room Air 07/03/17 16:00 64 14 136/66 (89) 96 Room Air 07/03/17 15:30 142/69 (93) 07/03/17 15:11 94 Room Air 07/03/17 15:00 68 14 133/69 (90) 96 Room Air Result Diagram: 07/04/17 0140 07/04/17 0140 Imaging Last Impressions Head CT 07/03/17 1458 Signed Impressions: Service Date/Time: Monday, July 03, 2017 15:31 - CONCLUSION: Negative noncontrast CT Ariel Conklin MD Chest X-Ray 07/03/17 1458 Signed Impressions: Service Date/Time: Monday, July 03, 2017 15:14 - CONCLUSION: 1. No acute cardiopulmonary disease. Sebastian Richard MD Head Magnetic Resonance Angiography 07/03/17 0000 Signed Impressions: Service Date/Time: Monday, July 03, 2017 18:31 - CONCLUSION: No acute disease. Noah Steven MD Cervical Spine X-Ray 07/03/17 0000 Signed Impressions: Service Date/Time: Monday, July 03, 2017 22:39 - CONCLUSION: 1. Cervical spondylosis at C4-5, C5-6 and to a lesser extent at C3-4 and C6-7. 2. No acute fracture or prevertebral soft tissue swelling. Noah Steven MD Carotid Artery Ultrasound 07/03/17 0000 Signed Impressions: Service Date/Time: Monday, July 03, 2017 22:18 - CONCLUSION: No acute disease. Noah Steven MD Brain MRI 07/03/17 0000 Signed Impressions: Service Date/Time: Monday, July 03, 2017 18:31 - CONCLUSION: No acute disease. Empty sella. Noah Steven MD Objective Remarks GENERAL: AOX3, NAD. SKIN: Warm and dry. HEAD: Normocephalic. EYES: No scleral icterus. No injection or drainage. NECK: Supple, trachea midline. No JVD or lymphadenopathy. CARDIOVASCULAR: Regular rate and rhythm without murmurs, gallops, or rubs. RESPIRATORY: Breath sounds equal bilaterally. No accessory muscle use. GASTROINTESTINAL: Abdomen soft, non-tender, nondistended. MUSCULOSKELETAL: No cyanosis, or edema. BACK: Nontender without obvious deformity. No CVA tenderness. Procedures Echo 07/04/2017 Normal left ventricular size. The left ventricular systolic function is normal with an estimated 60-65% EF Mild mitral valve regurgitation. There is mild tricuspid valve regurgitation. The estimated pulmonary arterial pressure is 39.8 mmHg. A/P Problem List: (1) TIA (transient ischemic attack) ICD Code: G45.9 - Transient cerebral ischemic attack, unspecified Status: Acute (2) HTN (hypertension) ICD Code: I10 - Essential (primary) hypertension Status: Chronic Assessment and Plan 67 year old female with a history of HTN and HLD presented to the ED with complaints of TIA, acute Head CT reviewed and shows no cva Brain MRI reviewed and shows no hemorrhage -Carotid US and 2D echo unremarkable. EF 60-65%. -Will d/c patient on Plavix 75mg Qday. HTN, chronic - currently well controlled. -Resume home metoprolol - Hyperlipidemia - Total Cholesterol over 200 with LDL 171. - Patient was on Lipitor 20mg Qday but she had significant muscle cramps. - Although Lipitor or Crestor would be preferable, we will start patient on Pravastatin 40mg QHS - Encouraged patient to obtain Lipid panel in 2-3 months when she is back to [place]. Discharge patient to home Condition on discharge: Improved Heart healthy Diet as tolerated Ad Jacqui activity Rx written: - Pravastatin 40mg QHS - Plavix 75mg Qday Follow-up with primary care physician within one week. Problem Qualifiers (1) HTN (hypertension): Qualified Codes: I10 - Essential (primary) hypertension Karley Esposito DO Jul 04, 2017 14:52
[2017-07-04 15:50] VITALS: BP 106/60; PULSE 71; RESP 16; TEMP 97.4; O2SAT 96
[2017-07-04] MEDS ORDERED: PRAV40TA PO (16:06)
[2017-07-04] MEDS ORDERED: PLAV75TA29 PO (16:06)
--- NOTE | 2017-07-04 17:04 | ECHRPT ---
Indication: cva/tia CONCLUSIONS Normal left ventricular size. The left ventricular systolic function is normal with an estimated 60-65/5 /EF Mild mitral valve regurgitation. There is mild tricuspid valve regurgitation. The estimated pulmonary arterial pressure is 39.8 mmHg. BP: / HR: Rhythm: MEASUREMENTS (Male / Female) Normal Values Technical Quality:Fair 2D ECHO LV Diastolic Diameter PLAX 5.0 cm 4.2 - 5.9 / 3.9 - 5.3 cm LV Systolic Diameter PLAX 3.6 cm IVS Diastolic Thickness 0.8 cm 0.6 - 1.0 / 0.6 - 0.9 cm LVPW Diastolic Thickness 0.9 cm 0.6 - 1.0 / 0.6 - 0.9 cm LV Relative Wall Thickness 0.4 RV Internal Dim ED PLAX 2.5 cm M-MODE Aortic Root Diameter MM 2.5 cm LA Systolic Diameter MM 3.5 cm LA Ao Ratio MM 1.4 AV Cusp Separation MM 1.5 cm DOPPLER Mitral E Point Velocity 67.1 cm/s Mitral A Point Velocity 82.4 cm/s Mitral E to A Ratio 0.8 LV E' Lateral Velocity 6.1 cm/s Mitral E to LV E' Lateral Ratio 10.9 LV E' Septal Velocity 7.8 cm/s Mitral E to LV E' Septal Ratio 8.6 TR Peak Velocity 273.0 cm/s TR Peak Gradient 29.8 mmHg Right Atrial Pressure 10.0 mmHg Pulmonary Artery Systolic Pressu 39.8 mmHg Right Ventricular Systolic Press 39.8 mmHg FINDINGS LEFT VENTRICLE Normal left ventricular size. The left ventricular systolic function is normal with an estimated ejection fraction in the range of 60-65%. RIGHT VENTRICLE Normal right ventricular size and systolic function. LEFT ATRIUM The left atrial size is normal. RIGHT ATRIUM The right atrial size is normal. ATRIAL SEPTUM Normal atrial septal thickness without atrial level shunting by limited color doppler interrogation. AORTA The aortic root and proximal ascending aorta are normal in size on limited imaging. MITRAL VALVE Structurally normal mitral valve. Mild mitral valve regurgitation. AORTIC VALVE Trileaflet aortic valve. No aortic valve stenosis or regurgitation. TRICUSPID VALVE Structurally normal tricuspid valve. There is mild tricuspid valve regurgitation. The estimated pulmonary arterial pressure is 39.8 mmHg. PULMONARY VALVE No pulmonary valve regurgitation or stenosis. VESSELS The inferior vena cava is normal in size. PERICARDIUM No pericardial effusion. Sree Hernandez MD (Electronically Signed) Final Date:04 July 2017 17:03
[2017-07-04] MEDS ORDERED: PRAVASTATIN SOD 40 MG TAB PO SCH (21:00)
--- NOTE | 2017-07-05 00:40 | EKG ---
Date Performed: 07/03/2017 Time Performed: 23:54:52 PTAGE: 67 years EKG: Sinus rhythm MARKED LEFT AXIS DEVIATION LOW QRS VOLTAGE IN PRECORDIAL LEADS PATTERN CONSISTENT WITH PULMONARY DIS EASE ABNORMAL ECG PREVIOUS TRACING : 07/03/2017 20.19 Since the prior tracing, there has been no significant alfaro DOCTOR: Shantanu Yang Interpretating Date/Time 07/05/2017 00:39:15
--- NOTE | 2017-07-05 00:47 | EKG ---
Date Performed: 07/03/2017 Time Performed: 20:19:22 PTAGE: 67 years EKG: Sinus rhythm MARKED LEFT AXIS DEVIATION LOW QRS VOLTAGE IN PRECORDIAL LEADS PATTERN CONSISTENT WITH PULMONARY DIS EASE ABNORMAL ECG PREVIOUS TRACING : 07/03/2017 14.27 Since the prior tracing, there has been no significant alfaro DOCTOR: Shantanu Yang Interpretating Date/Time 07/05/2017 00:45:41
--- NOTE | 2017-07-05 01:13 | EKG ---
Date Performed: 07/03/2017 Time Performed: 14:27:26 PTAGE: 67 years EKG: Sinus rhythm MARKED LEFT AXIS DEVIATION LOW QRS VOLTAGE IN PRECORDIAL LEADS PATTERN CONSISTENT WITH PULMONARY DIS EASE NON-SPECIFIC ST/T WAVE CHANGES ABNORMAL ECG NO PREVIOUS TRACING DOCTOR: Shantanu Yang Interpretating Date/Time 07/05/2017 01:12:17
== END 2017-07-04 17:24 | disposition home or self-care (01) ==
LOC: NEPE 13:04 → NEDA 17:50 → NEPHCDU 19:40
PROVIDERS: ADMIT Hospitalist; ATTEND Hospitalist
DX: G45.9 Transient cerebral ischemic attack, unspecified (principal); I10 Essential (primary) hypertension; Z82.3 Family history of stroke; E78.00 Pure hypercholesterolemia, unspecified; Z79.899 Other long term (current) drug therapy; R94.31 Abnormal electrocardiogram [ECG] [EKG]
CPT/HCPCS: 70450; 70544; 70551; 71045; 72040; 80053; 80061; 81001; 82550; 82948; 83036; 83735; 84100; 84439; 84443; 84484; 85025; 85610; 85730; 92522; 93005; 93306; 93880; 94150; 96372; 97161; 97166; 99285; G0378; G8987; G8988; G8989; G8999; G9158; G9186; J1650